=== PATIENT | female | born 1995 | race Caucasian/White ===

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

== ENCOUNTER 2019-04-20 15:56 | Inpatient (IN) ==
[2019-04-20 17:02] LABS: Hematocrit 30.3 % (37.0-47.0); Mean Cell Volume 73.7 fl (78-100); Mean Corpuscular Hemoglobin 21.9 pg (27-31); Mean Corpuscular Hgb Conc 29.7 g/dl (32-36); Mean Platelet Volume 10.4 fl (8-12.5); NRBC# 0.1 k/mm3 (0-1); Neutrophil # 8.4 K/mm3 (1.3-6.0); Neutrophil % 66.3 % (42-75.0); Platelet Count 302 K/mm3 (150-450); Red Blood Count 4.11 M/mm3 (4.2-5.4); Red Cell Distribution Width 17.4 % (11.5-14.0); White Blood Count 12.7 K/mm3 (4.0-10.5)
[2019-04-20 17:21] LABS: Albumin * 2.5 gm/dl (3.4-5.0); BUN/Creatinine Ratio 4.3 (9.0-21.6); Bilirubin, Total 0.3 mg/dL (0.0-1.1); Ca. Corrected For Albumin 10.1 mg/dL (8.4-10.2); Calcium * 9.2 mg/dL (7.9-10.9); Carbon Dioxide 22.8 mmol/L (24-32.6); Potassium 3.8 mmol/L (3.4-4.6); Total Protein 7.1 gm/dL (6.2-8.2)
[2019-04-20 17:27] LABS: Cocaine Ur Negative (NEGATIVE); Urine Barbiturate Negative (NEGATIVE); Urine Benzodiazepines Negative (NEGATIVE); Urine Opiates Negative (NEGATIVE); Urine PCP Negative (NEGATIVE); Urine THC Negative (NEGATIVE)
[2019-04-20 17:41] LABS: Random Urine Total Protein Less than 6.0 mg/dL (0-12)
[2019-04-20] MEDS ORDERED: DEXTROSE 5%-LACTATED RINGERS 1,000 ML IV PRN (18:29)
[2019-04-20] MEDS ORDERED: OXYTOCIN 20 UNITS in RINGER'S SOLUTION,LACTATED 1,000 ML IV ONE (18:37)
[2019-04-20] MEDS ORDERED: RINGER'S SOLUTION,LACTATED 1,000 ML IV PRN (18:37)
--- NOTE | 2019-04-20 18:44 | ANES ---
Anesthesia Pre Procedure Eval Vitals/Labs: Last Vital Signs Temp 37.1 C 04/20/19 16:04 Pulse 98 04/20/19 16:04 Resp 18 04/20/19 16:04 BP 132/72 04/20/19 16:04 Pulse Ox 99 04/20/19 16:04 HOME MEDICATIONS famotidine 10 mg tablet 10 mg PO DAILY 04/17/19 [Last Taken 04/20/19] Vits96/Iron Fum/Folic [ S] 1 tab PO DAILY 04/20/19 [Last Taken 04/19/19] Allergies/Adverse Reactions: Allergies Allergy/AdvReac Type Severity Reaction Status Date / Time No Known Allergies Allergy Verified 04/17/19 14:28 - Planned Procedure Planned Procedure: LABOR Medication List Reviewed:: Yes Allergies Verified: Yes Medical History (Last Reviewed 04/20/19 @ 18:40 by Stephen Vega CRNA) Frequent headaches Anemia affecting Onset Date: ~2016 Surgical History (Last Reviewed 04/20/19 @ 18:40 by Stephen Vega CRNA) H/O section Onset Date: ~10/02/16 failure to progress Family History (Last Reviewed 04/20/19 @ 18:40 by Stephen Vega CRNA) Mother Alive and well Father Alive and well Grandmother Cancer Grandmother Diabetes CVA (cerebral vascular accident) - Family Anesthesia History Family History:: no untoward family reactions to anesthesia, no familial bleeding tendencies, no family history of clotting disorders, no family history of premature - Airway/Neck/Teeth Within Normal Limits:: Yes Neck Exam: full range of motion Mallampatti Score: 2 Thyromental (T-M) distance: > 6 cm Mandibulo Hyoid distance: > 3 cm - Respiratory Respiratory Physical: lungs clear Smoking Status: Former smoker Sleep Apnea currently treated: No Sleep Apnea by current assessment: No - Cardiovascular Cardiac History: hypertension - gestational Tolerate Activity: Fair Heart Sounds: S1 & S2, Regular - Anesthesia Assessment and Plan ASA Class: PS, II, E Anesthesia Type Plan: Block - Bilateral TAP block for post op pain relief, Spinal
--- NOTE | 2019-04-20 18:51 | PN ---
Progess Note - Interim Date: 04/20/19 Time: 18:43 Narrative: 04/20/19 18:43 The patient presented to labor and delivery for losing her mucus plug and also for back pain. She denies any symptoms of pre-eclampsia. She was found to have blood pressures in the normal to mild range but mostly in the mild range. Pre-eclampsia labs are normal. The patient also started enid more frequently and is 3 cm consistent with labor. The contraction pattern also looks suspicious for a placental abruption. UDS negative on admission to labor and delivery. Proceed with repeat delivery. All risks, benefits, and alternatives of the procedure were explained to the patient and the patient consented to the procedure. T cat 1.
[2019-04-20] MEDS ORDERED: BUPIVACAINE HCL/EPINEPHRINE 50 ML VIAL ONE (18:55)
[2019-04-20] MEDS ORDERED: ceFAZolin SODIUM/DEXTROSE,ISO 2 GM/50 ML BAG IV ONE (19:30)
--- NOTE | 2019-04-20 20:21 | OR ---
Operative Report - Dictated Report Narrative: Date of delivery: 04/20/2019 Time of delivery: 1930 Gender: female weight: 4044 grams APGARS: 9 Preoperative diagnosis: IUP at 38w 5d, GHTN, labor, history of metaamphetamine use this Postoperative diagnosis: same Procedure: repeat delivery Anesthesia: Spinal Anesthesiologist: Stephen Vega CRNA Description of the procedure: The patient was taken to the operating room where spinal anesthesia was induced. She was then prepped and draped in the supine position in the standard surgical fashion. Attention was then turned to the abdomen. A Pfannestiel skin incision was made. The incision was carried through the subcutaneous tissue. The fascia was incised in the midline. The fascial incision was extended sharply. The fascia was tented up with Camille clamps and dissected off the underlying rectus muscles. The rectus muscles were in the midline. The peritoneum was entered bluntly with good visualization of the bowel and bladder. A large Gt retractor was placed in the abdomen. The uterus was incised in a low transverse fashion. The uterine incision was extended bluntly. The membranes were ruptured and the amniotic fluid appeared gonzalez. The head was delivered. The shoulders delivered without any difficulty followed by the rest of the . The cord was clamped and cut and the infant was handed off to the attending pediatric staff. The placenta was delivered by expression and appeared intact. The uterus was cleared of all clots and debris. The uterine incision was repaired with a single layer of locking 0-vicryl suture. Additional hemostasis was obtained with electrocautery. The Gt retractor was removed from the abdomen. The uterine incision was inspected and appeared hemostatic. The subfascial tissues and the rectus muscles also appeared hemostatic. The fascia was closed with 1-0 vicryl suture. The subcutaneous tissue was irrigated and made hemostatic. The skin incision was closed with 3-0 monocryl on a Jaziel needle. Iselin chao was placed over the incision and the incision was covered with a dressing. All sponge, lap, and needle counts were correct. The patient tolerated the procedure well. She was transferred to the recovery room in stable condition. EBL: 400 mL Complications: none Specimen: placenta to pathology History for MU Definition: * The number of deliveries resulting in a live the patient experienced prior to current hospitalization * The previous delivery of live twins or any live multiple gestation is considered one live event. *If primagravida or nulliparous is documented select zero for the number of previous live births. Live Events: 1
--- NOTE | 2019-04-20 20:36 | ANES ---
Post Anesthesia Discharge - Transfer of Care Transfer of Care handoff given to nurse: Yes - Discharge from PACU Discharge from PACU when meets criteria: Yes - Comfortable in PACU.
--- NOTE | 2019-04-20 20:37 | ANES ---
Anesthesia Procedure Note Procedure Note: ANESTHESIA PROCEDURE NOTE Date of Procedure: [04/20/2019 Time of procedure: 2019. Performed by: NELI Fisher CRNA, MSN Fare Collector: Rayna Villatoro RN. Preprocedure diagnosis: Post section pain. Post procedure diagnosis: Same. Procedure: Bilateral TAP block Indications: Post section pain relief. Findings: See below. Details of the procedure: The patient was brought to PACU and placed in the supine position. The patient was prepped with chlorhexidine and using ultrasound guidance the 3 abdominal muscular planes were identified and lidocaine 1% was infiltrated to the skin of the intended injection site. Under ultrasound guidance the the internal oblique and transverse this abdominis muscle layers were approached with visualization of a 4 inch block needle until the tip of the needle rested in the plane between the muscles. 25 mL bupivacaine 0.5% with 1-200,000 epinephrine was injected and the procedure was repeated on the other side. Please see radiology/ultrasound report for details and images of the procedure. EBL: 0 Fluids: N/A. Specimen: N/A. Post procedure condition: The patient tolerated the procedure well. No complications were noted. Thank you for this consultation. Stephen Vega CRNA, ARNP, MSN
--- NOTE | 2019-04-20 20:42 | ANES ---
Post Anesthesia Assessment - Vital Signs Vitals: Last Vital Signs Temp 36.5 C 04/20/19 20:30 Pulse 129 H 04/20/19 20:30 Resp 20 04/20/19 20:30 BP 122/57 04/20/19 20:30 Pulse Ox 100 04/20/19 20:30 Airway Patency: Normal - Mental Status Level Of Consciousness: Awake, Alert, Appropriate - Pain Level Pain Score: 0 - N/V Assessment Nausea/Vomiting Presence: None Dehydration:: No
[2019-04-20] MEDS ORDERED: SIMETHICONE 80 MG TAB.CHEW PO PRN (22:19)
[2019-04-20] MEDS ORDERED: diphenhydrAMINE HCL 25 MG CAPSULE PO PRN (22:19)
[2019-04-20] MEDS ORDERED: ONDANSETRON HCL/PF 2 MG/ML VIAL IV PRN (22:19)
[2019-04-20] MEDS ORDERED: HYDROcodone/ACETAMINOPHEN 1 EACH TABLET PO PRN (22:19)
[2019-04-20] MEDS ORDERED: SENNOSIDES 8.6 MG TABLET PO PRN (22:19)
[2019-04-20] MEDS ORDERED: BISACODYL 10 MG SUPP.RECT RC PRN (22:19)
[2019-04-20] MEDS: KETOROLAC TROMETHAMINE 30 MG/ML VIAL IV PRN (22:29)
[2019-04-21] MEDS: HYDROcodone/ACETAMINOPHEN 1 EACH TABLET PO PRN ×2 (00:13→14:44)
[2019-04-21] MEDS ORDERED: ceFAZolin SODIUM 1 GM VIAL IV PRN (06:00)
[2019-04-21] MEDS: KETOROLAC TROMETHAMINE 30 MG/ML VIAL IV PRN (07:30)
--- NOTE | 2019-04-21 09:50 | PN ---
Subjective - Date and Time Seen Date: 04/21/19 Time: 09:48 Subjective Narrative: Patient without complaints Objective Objective Narrative: See vital signs - Review of Systems Generalized/Overall Review: Reports: No Symptoms Reported Misc: All systems neg except as marked - Vitals Vitals: Last Vital Signs Temp 36.5 C 04/21/19 08:06 Pulse 82 04/21/19 08:06 Resp 16 04/21/19 08:06 BP 121/82 04/21/19 08:06 Pulse Ox 98 04/21/19 08:06 - Abnormal Lab Findings Abnormal Lab Findings: Abnormal Lab Results 04/20/19 04/20/19 04/20/19 Range/Units 16:46 16:59 16:59 WBC 12.7 H (4.0-10.5) K/mm3 RBC 4.11 L (4.2-5.4) M/mm3 Hgb 9.0 L (12.5-16.0) gm/dL Hct 30.3 L (37.0-47.0) % MCV 73.7 L (78-100) fl MCH 21.9 L (27-31) pg MCHC 29.7 L (32-36) g/dl RDW 17.4 H (11.5-14.0) % Immature Gran % (Auto) 2.00 H (0.001-0.429) % Immature Gran # (Auto) 0.26 H (0.000-0.0310) K/mm3 Neutrophils # 8.4 H (1.3-6.0) K/mm3 Carbon Dioxide 22.8 L (24-32.6) mmol/L Anion Gap 15.0 H (6.8-13.8) mmol/L BUN/Creatinine Ratio 4.3 L (9.0-21.6) Random Glucose 69 L (70-110) mg/dL ALT 10 L (19-67) U/L Alkaline Phosphatase 239 H (50-170) U/L Albumin 2.5 L (3.4-5.0) gm/dl Ur Random Creatinine 54.6 L (60-200) mg/dL - Exam Constitutional: Present: Alert, Oriented x3, Cooperative, No distress Abdomen: Present: soft, nontender, nondistended - dressing c/d/i Extremity: Present: non-tender, no calf tenderness Skin Exam: Present: normal color, warm/dry, no cyanosis Appearance: Present: appropriate appearance Eye contact: Present: cooperative Thoughts: Present: normal thought pattern Cauti Physician Documentation - Urinary Catheter Management Urethral (Vasquez) Urethral Indwelling: No Date of Insertion: 04/20/19 Time of Insertion: 19:20 Date of Removal: 04/21/19 Time of Removal: 07:30 Assessment/Plan Plan Narrative: POD 1 s/p repeat delivery Doing well Discharge POD 3
[2019-04-21] MEDS: DOCUSATE SODIUM 100 MG CAPSULE PO SCH ×3 (12:09→20:38)
[2019-04-21] MEDS: IBUPROFEN 800 MG TABLET PO PRN ×2 (14:44→20:38)
[2019-04-22] MEDS: DOCUSATE SODIUM 100 MG CAPSULE PO SCH ×2 (09:55→21:21)
[2019-04-22] MEDS: IBUPROFEN 800 MG TABLET PO PRN ×2 (09:55→19:31)
[2019-04-22] MEDS: HYDROcodone/ACETAMINOPHEN 1 EACH TABLET PO PRN (09:55)
--- NOTE | 2019-04-22 10:03 | PN ---
Subjective - Date and Time Seen Date: 04/22/19 Time: 10:02 Subjective Narrative: Patient without complaints Objective Objective Narrative: See vital signs - Review of Systems Generalized/Overall Review: Reports: No Symptoms Reported Misc: All systems neg except as marked - Vitals Vitals: Last Vital Signs Temp 36.8 C 04/22/19 08:26 Pulse 103 H 04/22/19 08:26 Resp 16 04/22/19 08:26 BP 146/86 H 04/22/19 08:26 Pulse Ox 97 04/22/19 08:26 - Exam Constitutional: Present: Alert, Oriented x3, Cooperative, No distress ENT Exam: Present: hearing grossly normal Abdomen: Present: soft, nontender, nondistended - incision c/d/i Extremity: Present: non-tender, no calf tenderness Skin Exam: Present: normal color, warm/dry, no cyanosis Appearance: Present: appropriate appearance Eye contact: Present: cooperative Thoughts: Present: normal thought pattern Cauti Physician Documentation - Urinary Catheter Management Urethral (Vasquez) Urethral Indwelling: No Date of Insertion: 04/20/19 Time of Insertion: 19:20 Date of Removal: 04/21/19 Time of Removal: 07:30 Assessment/Plan Plan Narrative: POD 2 s/p repeat delivery Doing well Discharge tomorrow
[2019-04-23 09:34] VITALS: BP 133/63
[2019-04-23] MEDS: IBUPROFEN 800 MG TABLET PO PRN (09:53)
[2019-04-23] MEDS: HYDROcodone/ACETAMINOPHEN 1 EACH TABLET PO PRN (09:53)
[2019-04-23] MEDS: DOCUSATE SODIUM 100 MG CAPSULE PO SCH (09:54)
[2019-04-23] MEDS ORDERED: MEDROXYPROGESTERONE ACET 150 MG/ML SYRG IM ONE (10:05)
--- NOTE | 2019-04-23 10:05 | PN ---
Subjective - Date and Time Seen Date: 04/23/19 Time: 10:04 Subjective Narrative: Patient without complaints Objective Objective Narrative: See vital signs - Review of Systems Generalized/Overall Review: Reports: No Symptoms Reported Misc: All systems neg except as marked - Vitals Vitals: Last Vital Signs Temp 36.8 C 04/23/19 07:00 Pulse 87 04/23/19 07:00 Resp 18 04/23/19 07:00 BP 133/63 04/23/19 07:00 Pulse Ox 98 04/23/19 07:00 - Exam Constitutional: Present: Alert, Oriented x3, Cooperative, No distress ENT Exam: Present: hearing grossly normal Abdomen: Present: soft, nontender, nondistended - incision c/d/i Extremity: Present: non-tender, no calf tenderness Skin Exam: Present: normal color, warm/dry, no cyanosis Appearance: Present: appropriate appearance Eye contact: Present: cooperative Thoughts: Present: normal thought pattern Cauti Physician Documentation - Urinary Catheter Management Urethral (Vasquez) Urethral Indwelling: No Date of Insertion: 04/20/19 Time of Insertion: 19:20 Date of Removal: 04/21/19 Time of Removal: 07:30 Assessment/Plan Plan Narrative: POD 3 s/p repeat delivery Doing well Discharge today Follow-up in 2 weeks for an incision check or sooner for any other concerns
== END 2019-04-23 12:15 | disposition home or self-care (01) | DRG 787 ==
LOC: OBCLINIC 15:56 → OB 18:20 → MS 04-22 18:40
PROVIDERS: ADMIT Obstetrics & Gynecology; ATTEND Obstetrics & Gynecology
CPT/HCPCS: 36415; 59025; 80053; 80307; 82570; 84155; 84156; 85025; 86850; 88307